=== PATIENT | male | born 1940 | race Caucasian/White ===

== ENCOUNTER 2017-01-24 12:21 | Day surgery (SDC) | payer MEDICARE, BC ==
[~2017-01-24 12:21] MED LIST: CHONDR SU A NA/HYALUR INTRAOC KIT (SURGICARE) ONE; KETOROLAC TROMETHAMINE 0.45% 4 DROP/0.4 ML DROPERETTE OD PRN; LIDOCAINE 1% INJ-PF (10 MG/ML) 30 ML SDV ONE; PHENYLEPHRINE/KETOROLAC 1%-0.3% 4 ML VIAL ONE
[2017-01-24] MEDS: CYCLOPENTOLATE 0.2%/PHENYLEPHRINE 1% OPH SOLN 2 ML OD PRN ×3 (12:33→12:53)
[2017-01-24] MEDS: TROPICAMIDE 1% OPH SOLN 3 ML OD PRN ×3 (12:33→12:53)
[2017-01-24] MEDS: BESIFLOXACIN HCL 0.6% OPH SUSP 5 ML BOTTLE OD PRN ×3 (12:33→13:43)
[2017-01-24] MEDS: TETRACAINE HCL 0.5% OPH SOLN 2 ML OD PRN ×3 (12:34→13:17)
[2017-01-24] MEDS ORDERED: MIDAZOLAM 2 MG/2 ML INJ ONE (12:47)
[2017-01-24] MEDS ORDERED: FENTANYL CITRATE INJ/PF 100 MCG/2 ML AMPUL ONE (12:47)
--- NOTE | 2017-01-24 19:04 | [facility] OPERATIVE REPORT E ---
[facility] Report NAME: LEIGH LEWIS AGE: 76Y DATE OF SURGERY: 01/24/2017 ROOM: PREOPERATIVE DIAGNOSIS: 1. CATARACT, RIGHT EYE. 2. PUPIL MIOSIS RIGHT EYE. POSTOPERATIVE DIAGNOSIS: 1. CATARACT, RIGHT EYE. 2. PUPIL MIOSIS RIGHT EYE. OPERATION: Complex cataract extraction with use of a Malyugin ring due to a poor pupillary dilatation. SURGEON: HARRY ROTHMAN M.D. ANESTHESIA: Topical. PROCEDURE: After obtaining appropriate consent, the patient's right eye was prepped and draped in sterile fashion as well as the surgeon in a sterile manner and cataract surgery was started. First a paracentesis blade was used to make a small side-port incision. Viscoelastic was used to inflate the anterior chamber. Next a 2.4 mm incision was made with the paracentesis blade. A continuous capsulorrhexis incision was made using a cystotome and Utrata forceps. Following this hydrodissection was carried out to make the lens fully loose and mobile and it was rotated 90 degrees. Following this, a rzobik-uur-rynjrgf technique was used to phacoemulsify the lens with a CDE of 14.20. The remaining cortex was removed with irrigation/aspiration. Provisc was instilled into the capsular bag to inflate the bag. A SN60WF, 23.0 diopter lens was placed. The remaining viscoelastic material was removed with irrigation/aspiration. Following this, a 10-0 nylon suture was used to close the incision and it was found to be watertight. Vigamox was instilled in the eye and a protective shield was placed over the eye. The patient returned to the postoperative recovery in stable condition. Prior to making the capsulorrhexis, a Malyugin ring was inserted due to poor pupillary dilation. This was removed at the end of the case. DICTATING PHYSICIAN: HARRY ROTHMAN M.D. [id number] PHY#: [id number] ID: [id number] JOB#: [id number] ACCT: [id number] cc:HARRY ROTHMAN M.D. >
--- NOTE | 2017-01-24 19:14 | DISCHARGE SUMMARY E ---
Discharge Summary NAME: LEIGH LEWIS : 1940 AGE: 76Y ADMITTED: 01/24/2017 DISCHARGED: HOSPITAL COURSE: This is a 22-vtvz-tws-old male who underwent cataract extraction of the right eye, complex, with use of a Malyugin ring. DIAGNOSES: 1. Cataract, right eye. 2. Pupil myosis, requiring a Malyugin ring. The patient underwent surgery because he was having trouble seeing words on the TV. DISCHARGE INSTRUCTIONS: He is to be on a regular diet. No bending at his waist, no heavy lifting. He is to use his Besivance, Ilevro, and Durezol at 3:00 p.m. and 8:00 p.m., and sleep with a rigid shield. I will see him for 1 day postoperative tomorrow. DICTATING PHYSICIAN: HARRY ROTHMAN M.D. [id number] PHY#: [id number] ID: [id number] JOB#: [id number] ACCT: [id number] cc:HARRY ROTHMAN M.D. >
== END 2017-01-24 14:28 | disposition home or self-care (01) ==
LOC: SC 12:21
PROVIDERS: ATTEND Internal Medicine
PROC: 08RJ3JZ Replacement of Right Lens with Synthetic Substitute, Percutaneous Approach (ICD-10-PCS; principal; 2017-01-24 14:00)
DX: H25.13 Age-related nuclear cataract, bilateral (principal); H57.03 Miosis; H01.001 Unspecified blepharitis right upper eyelid; H04.123 Dry eye syndrome of bilateral lacrimal glands; H01.004 Unspecified blepharitis left upper eyelid; E11.9 Type 2 diabetes mellitus without complications; E78.00 Pure hypercholesterolemia, unspecified; I10 Essential (primary) hypertension; F17.210 Nicotine dependence, cigarettes, uncomplicated; G62.9 Polyneuropathy, unspecified; I70.203 Unspecified atherosclerosis of native arteries of extremities, bilateral legs; Z79.899 Other long term (current) drug therapy; Z88.2 Allergy status to sulfonamides; I25.2 Old myocardial infarction
CPT/HCPCS: 66982; 82962; V2632; J2250; J3490 ×2; A9270; J3010; C9447; 142

== ENCOUNTER 2017-02-21 11:26 | Day surgery (SDC) | payer MEDICARE, BC ==
[~2017-02-21 11:26] MED LIST changes: +EPINEPHRINE INJ/PF 1 MG/1 ML AMPULE ONE; -KETOROLAC TROMETHAMINE 0.45% 4 DROP/0.4 ML DROPERETTE OD PRN; +KETOROLAC TROMETHAMINE 0.45% 4 DROP/0.4 ML DROPERETTE OS PRN; -PHENYLEPHRINE/KETOROLAC 1%-0.3% 4 ML VIAL ONE
[2017-02-21] MEDS: TROPICAMIDE 1% OPH SOLN 3 ML OS PRN ×3 (11:41→12:18)
[2017-02-21] MEDS: CYCLOPENTOLATE 0.2%/PHENYLEPHRINE 1% OPH SOLN 2 ML OS PRN ×3 (11:41→12:18)
[2017-02-21] MEDS: BESIFLOXACIN HCL 0.6% OPH SUSP 5 ML BOTTLE OS PRN ×3 (11:42→13:07)
[2017-02-21] MEDS: TETRACAINE HCL 0.5% OPH SOLN 2 ML OS PRN ×3 (11:43→12:33)
[2017-02-21] MEDS ORDERED: MIDAZOLAM 2 MG/2 ML INJ ONE (12:14)
[2017-02-21] MEDS ORDERED: FENTANYL CITRATE INJ/PF 100 MCG/2 ML AMPUL ONE (12:20)
--- NOTE | 2017-02-21 19:19 | [facility] OPERATIVE REPORT E ---
[facility] Operative Report NAME: LEIGH LEWIS AGE: 76Y DATE OF SURGERY: 02/21/2017 ROOM: PREOPERATIVE DIAGNOSIS: Cataract, left eye. POSTOPERATIVE DIAGNOSIS: Cataract, left eye. OPERATION: Cataract extraction with intraocular lens implant of the left eye. SURGEON: HARRY ROTHMAN M.D. ANESTHESIA: Topical. PROCEDURE: After obtaining appropriate consent, the patient's left eye was prepped and draped in sterile fashion as well as the surgeon in a sterile manner and cataract surgery was started. First a paracentesis blade was used to make a small side-port incision. Viscoelastic was used to inflate the anterior chamber. Next a 2.4 mm incision was made with the paracentesis blade. A continuous capsulorrhexis incision was made using a cystotome and Utrata forceps. Following this hydrodissection was carried out to make the lens fully loose and mobile and it was rotated 90 degrees. Following this, a xroeop-crz-zdqtlvv technique was used to phacoemulsify the lens with a CDE of 9.73. The remaining cortex was removed with irrigation/aspiration. Provisc was instilled into the capsular bag to inflate the bag. A SN60WF, 22.0 diopter lens was placed. The remaining viscoelastic material was removed with irrigation/aspiration. Following this, a 10-0 nylon suture was used to close the incision and it was found to be watertight. Vigamox was instilled in the eye and a protective shield was placed over the eye. The patient returned to the postoperative recovery in stable condition. DICTATING PHYSICIAN: HARRY ROTHMAN M.D. [id number] PHY#: [id number] ID: [id number] JOB#: [id number] ACCT: [id number] cc:HARRY ROTHMAN M.D. >
--- NOTE | 2017-02-22 07:52 | [facility] DISCHARGE SUMMARY E ---
[facility] Discharge Summary NAME: LEIGH LEWIS AGE: 76Y ADMITTED: 02/21/2017 DISCHARGED: 02/21/2017 HISTORY OF PRESENT ILLNESS AND HOSPITAL COURSE: This is a 76-year-old male who underwent cataract extraction of the left eye with use of Malyugin ring. DIAGNOSES: 1. Cataract, left eye. 2. Pupil miosis, left eye requiring a Malyugin ring. HOSPITAL COURSE: The patient underwent surgery because he was having difficulty driving secondary to blurry vision at distance. DISCHARGE INSTRUCTIONS: 1. The patient should be on a regular diet. 2. No bending at the waist. 3. No heavy lifting. 4. He should use Besivance, Ilevro, and Durezol at 3 p.m. and 8 p.m. and sleep with a rigid shield. 5. I will see him for a 1-day postoperative tomorrow. DICTATING PHYSICIAN: HARRY ROTHMAN M.D. [id number] PHY#: [id number] ID: [id number] JOB#: [id number] ACCT: [id number] cc:HARRY ROTHMAN M.D. >
== END 2017-02-21 13:52 | disposition home or self-care (01) ==
LOC: SC 11:26
PROVIDERS: ATTEND Internal Medicine
PROC: 08RK3JZ Replacement of Left Lens with Synthetic Substitute, Percutaneous Approach (ICD-10-PCS; principal; 2017-02-21 13:00)
DX: H25.12 Age-related nuclear cataract, left eye (principal); H57.03 Miosis; Z96.1 Presence of intraocular lens; E11.9 Type 2 diabetes mellitus without complications; I10 Essential (primary) hypertension; F17.210 Nicotine dependence, cigarettes, uncomplicated; I25.2 Old myocardial infarction; Z88.2 Allergy status to sulfonamides; Z79.899 Other long term (current) drug therapy; Z79.02 Long term (current) use of antithrombotics/antiplatelets
CPT/HCPCS: 66984; 82962; V2632; J2250; J3490 ×2; A9270; J0171; J3010; 142

== ENCOUNTER → 2018-07-03 | Outpatient (CLI) | payer MEDICARE, BC ==
--- NOTE | 2018-07-03 15:51 | RADIOLOGY REPORT (SQ) ---
EXAM DESCRIPTION: BARIUM SWALLOW ESOPHAGUS COMPLETED DATE/TIME: 07/03/2018 9:17 am REASON FOR STUDY: DYSPHAGIA (R13.10) R13.10 DYSPHAGIA, UNSPECIFIED COMPARISON: None. TECHNIQUE: Under fluoroscopic guidance, patient ingested effervescent granules followed by thick and thin barium. Fluoroscopic spot images and routine radiographic images acquired and stored on PACS. 12 MM BARIUM TABLET GIVEN: 12 mm barium tablet passed through the esophagus and into the stomach with out delay. LIMITATIONS: None. FLUOROSCOPY TIME: FLUORO TIME: 2.5 minutes 5 images saved to PACS. FINDINGS: NEUROMUSCULAR COORDINATION OF SWALLOW: Normal. No aspiration. ESOPHAGEAL MOTILITY: Normal peristalsis. No esophageal spasm. Small persistent hang up of barium in the upper esophagus, however no evidence for Zenker's diverticulum. ESOPHAGEAL MUCOSA: Normal mucosa without masses or ulceration. GASTRO-ESOPHAGEAL JUNCTION: Tiny hiatal hernia is present. No gastroesophageal reflux seen on today' s study. NON-GI TRACT STRUCTURES: No significant finding. OTHER: No other significant finding. IMPRESSION: TINY HIATAL HERNIA. OTHERWISE UNREMARKABLE STUDY. . RECOMMENDATION: NONE COMMENT: None Quality ID [id number]: Final reports for procedures using fluoroscopy that document radiation exposure fabiola roland, or exposure time and number of fluorographic images (if radiation exposure indices are not avail able) TECHNICAL DOCUMENTATION: JOB ID: [id number] [employer]- All Rights Reserved Reading location - IP/workstation name: [email or web address]
== END ==
LOC: RAD 08:30
PROVIDERS: ATTEND Internal Medicine Gastroenterology
DX: K44.9 Diaphragmatic hernia without obstruction or gangrene (principal); R13.10 Dysphagia, unspecified
CPT/HCPCS: 74220